=== PATIENT | male | born 1960 | race African-American/Black ===

== ENCOUNTER 2022-08-03 13:15 | Inpatient (IN) | payer OTHER ==
[~2022-08-03] VITALS: Ht 154.9 cm; Wt 50.0 kg
[2022-08-03 14:11] LABS: GLUCOMETER DEV NAME(LOC) ERT.5; GLUCOSE,POINT OF CARE 65 MG/DL (70-110)
[2022-08-03] MEDS ORDERED: DEXTROSE 50%-WATER 25 GM/50 ML SYRINGE IVP ONE ×2 (14:15→16:15)
[2022-08-03 14:20] LABS: BASOPHILS % (AUTO) 0.2 % (0.0-2.0); EOSINOPHILS % (AUTO) 2.3 % (1.0-6.0); HEMATOCRIT 42.6 % (41-53); HEMOGLOBIN 13.5 g/dL (13.5-17.5); LYMPHOCYTES # (AUTO) 1.1 K/uL (1.0-4.8); LYMPHOCYTES % (AUTO) 15.5 % (22.0-44.0); MEAN CORPUSCULAR HEMOGLOBIN 27.9 pg (26.0-34.0); MEAN CORPUSCULAR HGB CONC 31.8 G/dL (31.0-37.0); MEAN CORPUSCULAR VOLUME 88 fL (80-100); MONOCYTES # (AUTO) 0.7 K/uL (0.1-1.0); MONOCYTES % (AUTO) 9.2 % (2.0-9.0); NEUTROPHILS # (AUTO) 5.1 K/uL (1.8-7.7); NEUTROPHILS % (AUTO) 72.8 % (40.0-70.0); PLATELET COUNT (AUTO) 187 K/uL (150-450); RED BLOOD CELL COUNT(AUTO) 4.85 MIL/uL (4.50-5.90); RED CELL DISTRIBUTION WIDTH 16.7 % (11.5-14.5)
[2022-08-03 14:37] LABS: APPEARANCE,URINE CLEAR (CLEAR); BILIRUBIN,URINE NEGATIVE (NEGATIVE); GLUCOSE, URINE (UA) >=1000 mg/dL (NEGATIVE); KETONES,URINE NEGATIVE (NEGATIVE); LEUKOCYTE ESTERASE ,URINE NEGATIVE (NEGATIVE); NITRATE,URINE NEGATIVE (NEGATIVE); OCCULT BLOOD,URINE NEGATIVE (NEGATIVE); PH,URINE 5.5 (5.0-8.0); PROTEIN,URINE NEGATIVE (NEGATIVE); SPECIFIC GRAVITIY, URINE 1.016 (1.003-1.030); UROBILINOGEN,URINE <=1.0 mg/dL (<=1.0)
[2022-08-03 14:38] LABS: B-TYPE NATRIURETIC PEPTIDE 24 pg/mL (0-100)
[2022-08-03 14:40] LABS: BACTERIA,URINE None Seen /HPF (None Seen); RBC,URINE None Seen /HPF (0-2); WBC,URINE None Seen /HPF (0-5)
[2022-08-03 14:46] LABS: GLUCOMETER DEV NAME(LOC) ERT.5; GLUCOSE,POINT OF CARE 76 MG/DL (70-110)
[2022-08-03 14:54] LABS: ANION GAP 4 mmol/L (8-16); CALCIUM, TOTAL 9.4 mg/dL (8.8-10.5); CARBON DIOXIDE 33 mmol/L (22-29); CHLORIDE 105 mmol/L (98-107); CREATININE 0.91 mg/dL (0.60-1.30); GLUCOSE,RANDOM 75 mg/dL (70-110); POTASSIUM 3.5 mmol/L (3.5-5.1); SODIUM SERUM 142 mmol/L (136-145); UREA NITROGEN, BLOOD 17 mg/dL (7-18)
[2022-08-03 14:56] LABS: GLOMERULAR FILTR. RATE CALC > 60 mL/min (>60)
[2022-08-03 15:28] LABS: ALANINE AMINOTRANSFERASE 26 U/L (12-78); ALBUMIN 3.7 g/dL (3.4-5.0); ALKALINE PHOSPHATASE 73 U/L (46-116); ASPARTATE AMINOTRANSFERASE 24 U/L (15-37); BILIRUBIN,TOTAL 0.4 mg/dL (0.1-1.0); CREATINE KINASE, TOTAL ONLY 489 U/L (39-308)
[2022-08-03 15:31] LABS: GLUCOSE,POINT OF CARE 69 MG/DL (70-110)
[2022-08-03] MEDS ORDERED: DEXTROSE 5%-0.9% SODIUM CHL 1,000 ML IV ONE (16:15)
[2022-08-03 16:16] LABS: GLUCOMETER DEV NAME(LOC) ERT.5; GLUCOSE,POINT OF CARE 48 MG/DL (70-110)
[2022-08-03 16:56] LABS: GLUCOMETER DEV NAME(LOC) ERT.5; GLUCOSE,POINT OF CARE 153 MG/DL (70-110)
[2022-08-03 17:11] LABS: COVID AG,FIA SOURCE NASAL SWAB
[2022-08-03 17:26] LABS: GLUCOMETER DEV NAME(LOC) ERT.5; GLUCOSE,POINT OF CARE 129 MG/DL (70-110)
[2022-08-03 18:02] LABS: GLUCOMETER DEV NAME(LOC) ERT.5; GLUCOSE,POINT OF CARE 109 MG/DL (70-110)
[2022-08-03 20:21] LABS: GLUCOMETER DEV NAME(LOC) ERT.5; GLUCOSE,POINT OF CARE 77 MG/DL (70-110)
[2022-08-03] MEDS ORDERED: ONDANSETRON HCL 4 MG/2 ML VIAL IVP PRN ×2 (21:15→22:15)
[2022-08-03] MEDS ORDERED: 0.9% SODIUM CHLORIDE 10 ML SYRINGE IVP PRN ×2 (21:15→22:15)
[2022-08-03] MEDS ORDERED: ACETAMINOPHEN 325 MG TABLET PO PRN ×2 (21:15→22:15)
[2022-08-03] MEDS ORDERED: OxyCODONE HCL/ACETAMINOPHEN 5-325 MG TABLET PO PRN ×2 (22:15)
[2022-08-03] MEDS ORDERED: MAGNESIUM HYDROXIDE SUSPENSION 30 ML UDCUP PO PRN (22:15)
[2022-08-03] MEDS: DEXTROSE 5%-0.9% SODIUM CHL 1,000 ML IV SCH (22:30)
[2022-08-04 00:41] VITALS: BP 98/55
[2022-08-04 04:32] VITALS: BP 114/55
[2022-08-04] MEDS: DEXTROSE 5%-0.9% SODIUM CHL 1,000 ML IV SCH (04:38)
[2022-08-04 06:26] LABS: GLUCOMETER DEV NAME(LOC) 5S.1B; GLUCOSE,POINT OF CARE 72 MG/DL (70-110)
[2022-08-04 06:26] LABS: GLUCOMETER DEV NAME(LOC) 5S.2B; GLUCOSE,POINT OF CARE 111 MG/DL (70-110)
[2022-08-04 06:31] LABS: BASOPHILS % (AUTO) 0.3 % (0.0-2.0); EOSINOPHILS % (AUTO) 2.9 % (1.0-6.0); HEMATOCRIT 38.8 % (41-53); HEMOGLOBIN 12.6 g/dL (13.5-17.5); LYMPHOCYTES # (AUTO) 1.4 K/uL (1.0-4.8); LYMPHOCYTES % (AUTO) 26.4 % (22.0-44.0); MEAN CORPUSCULAR HEMOGLOBIN 28.6 pg (26.0-34.0); MEAN CORPUSCULAR HGB CONC 32.4 G/dL (31.0-37.0); MEAN CORPUSCULAR VOLUME 88 fL (80-100); MONOCYTES # (AUTO) 0.6 K/uL (0.1-1.0); MONOCYTES % (AUTO) 10.5 % (2.0-9.0); NEUTROPHILS # (AUTO) 3.2 K/uL (1.8-7.7); NEUTROPHILS % (AUTO) 59.9 % (40.0-70.0); PLATELET COUNT (AUTO) 177 K/uL (150-450); RED BLOOD CELL COUNT(AUTO) 4.41 MIL/uL (4.50-5.90); RED CELL DISTRIBUTION WIDTH 16.4 % (11.5-14.5)
[2022-08-04 07:03] LABS: ALANINE AMINOTRANSFERASE 13 U/L (12-78); ALBUMIN 2.8 g/dL (3.4-5.0); ALKALINE PHOSPHATASE 58 U/L (46-116); ANION GAP 4 mmol/L (8-16); ASPARTATE AMINOTRANSFERASE 21 U/L (15-37); BILIRUBIN,TOTAL 0.3 mg/dL (0.1-1.0); CALCIUM, TOTAL 8.4 mg/dL (8.8-10.5); CARBON DIOXIDE 30 mmol/L (22-29); CHLORIDE 110 mmol/L (98-107); CREATININE 0.82 mg/dL (0.60-1.30); GLUCOSE,RANDOM 79 mg/dL (70-110); POTASSIUM 3.5 mmol/L (3.5-5.1); SODIUM SERUM 144 mmol/L (136-145); TOTAL PROTEIN, SERUM 5.5 g/dL (6.4-8.2); UREA NITROGEN, BLOOD 13 mg/dL (7-18)
[2022-08-04 07:08] LABS: GLOMERULAR FILTR. RATE CALC > 60 mL/min (>60)
[2022-08-04 07:47] VITALS: BP 115/71
[2022-08-04] MEDS ORDERED: INSULIN REGULAR, HUMAN 100 UNITS/ML SQ PRN ×2 (08:30)
[2022-08-04] MEDS: DOCUSATE SODIUM 100 MG CAPSULE PO SCH ×2 (10:29→21:44)
[2022-08-04] MEDS: PANTOPRAZOLE SODIUM 40 MG/VIAL IVP SCH (10:30)
[2022-08-04 11:11] VITALS: BP 115/69
[2022-08-04 12:21] LABS: GLUCOMETER DEV NAME(LOC) 5S.1B; GLUCOSE,POINT OF CARE 64 MG/DL (70-110)
[2022-08-04 20:06] LABS: GLUCOMETER DEV NAME(LOC) 5S.1B; GLUCOSE,POINT OF CARE 95 MG/DL (70-110)
[2022-08-04 20:09] VITALS: BP 122/74
[2022-08-05 00:29] VITALS: BP 129/78
[2022-08-05 05:06] VITALS: BP 119/71
[2022-08-05 06:51] LABS: GLUCOMETER DEV NAME(LOC) 5S.2B; GLUCOSE,POINT OF CARE 54 MG/DL (70-110)
[2022-08-05] MEDS: DOCUSATE SODIUM 100 MG CAPSULE PO SCH ×2 (08:07→20:35)
[2022-08-05] MEDS: PANTOPRAZOLE SODIUM 40 MG/VIAL IVP SCH (08:07)
[2022-08-05 11:08] VITALS: BP 123/71
[2022-08-05 11:51] LABS: GLUCOMETER DEV NAME(LOC) 5S.2B; GLUCOSE,POINT OF CARE 66 MG/DL (70-110)
[2022-08-05 11:51] LABS: GLUCOMETER DEV NAME(LOC) 5S.2B; GLUCOSE,POINT OF CARE 61 MG/DL (70-110)
[2022-08-05] MEDS: DEXTROSE 50%-WATER 25 GM/50 ML SYRINGE IVP PRN (12:00)
[2022-08-05 12:52] LABS: BASOPHILS % (AUTO) 0.3 % (0.0-2.0); EOSINOPHILS % (AUTO) 1.4 % (1.0-6.0); HEMATOCRIT 39.9 % (41-53); HEMOGLOBIN 12.7 g/dL (13.5-17.5); LYMPHOCYTES # (AUTO) 0.9 K/uL (1.0-4.8); LYMPHOCYTES % (AUTO) 15.7 % (22.0-44.0); MEAN CORPUSCULAR HEMOGLOBIN 28.2 pg (26.0-34.0); MEAN CORPUSCULAR HGB CONC 31.9 G/dL (31.0-37.0); MEAN CORPUSCULAR VOLUME 88 fL (80-100); MONOCYTES # (AUTO) 0.4 K/uL (0.1-1.0); MONOCYTES % (AUTO) 7.1 % (2.0-9.0); NEUTROPHILS # (AUTO) 4.2 K/uL (1.8-7.7); NEUTROPHILS % (AUTO) 75.5 % (40.0-70.0); PLATELET COUNT (AUTO) 175 K/uL (150-450); RED BLOOD CELL COUNT(AUTO) 4.52 MIL/uL (4.50-5.90); RED CELL DISTRIBUTION WIDTH 16.6 % (11.5-14.5)
[2022-08-05 13:08] LABS: ANION GAP 4 mmol/L (8-16); CALCIUM, TOTAL 8.7 mg/dL (8.8-10.5); CARBON DIOXIDE 31 mmol/L (22-29); CHLORIDE 106 mmol/L (98-107); CREATININE 0.86 mg/dL (0.60-1.30); GLUCOSE,RANDOM 178 mg/dL (70-110); POTASSIUM 3.8 mmol/L (3.5-5.1); SODIUM SERUM 141 mmol/L (136-145); UREA NITROGEN, BLOOD 9 mg/dL (7-18)
[2022-08-05 13:09] LABS: GLOMERULAR FILTR. RATE CALC > 60 mL/min (>60)
[2022-08-05 15:26] LABS: GLUCOMETER DEV NAME(LOC) 5S.2B; GLUCOSE,POINT OF CARE 63 MG/DL (70-110)
[2022-08-05 16:35] VITALS: BP 120/72
[2022-08-05 19:51] VITALS: BP 125/78
[2022-08-05 22:51] LABS: GLUCOMETER DEV NAME(LOC) 6N.2B; GLUCOSE,POINT OF CARE 89 MG/DL (70-110)
[2022-08-06 05:23] VITALS: BP 126/78
[2022-08-06 06:26] LABS: GLUCOMETER DEV NAME(LOC) 5S.2B; GLUCOSE,POINT OF CARE 76 MG/DL (70-110)
[2022-08-06 08:31] LABS: GLUCOMETER DEV NAME(LOC) 6N.1; GLUCOSE,POINT OF CARE 58 MG/DL (70-110)
[2022-08-06 08:31] LABS: GLUCOMETER DEV NAME(LOC) 6N.1; GLUCOSE,POINT OF CARE 111 MG/DL (70-110)
[2022-08-06] MEDS: DOCUSATE SODIUM 100 MG CAPSULE PO SCH ×2 (08:31→20:58)
[2022-08-06] MEDS: PANTOPRAZOLE SODIUM 40 MG/VIAL IVP SCH (08:31)
[2022-08-06] MEDS: DEXTROSE 50%-WATER 25 GM/50 ML SYRINGE IVP PRN (12:12)
[2022-08-06] MEDS ORDERED: DEXTROSE 5%-0.45% SODIUM CHL 500 ML IV ONE ×2 (13:15→14:46)
[2022-08-06 14:11] LABS: GLUCOMETER DEV NAME(LOC) 6N.1; GLUCOSE,POINT OF CARE 45 MG/DL (70-110)
[2022-08-06 14:11] LABS: GLUCOMETER DEV NAME(LOC) 6N.1; GLUCOSE,POINT OF CARE 110 MG/DL (70-110)
[2022-08-06 15:46] VITALS: BP 126/80
[2022-08-06 20:25] VITALS: BP 136/68
[2022-08-06 23:36] LABS: GLUCOMETER DEV NAME(LOC) 6N.2B; GLUCOSE,POINT OF CARE 64 MG/DL (70-110)
[2022-08-06 23:36] LABS: GLUCOMETER DEV NAME(LOC) 6N.2B; GLUCOSE,POINT OF CARE 121 MG/DL (70-110)
[2022-08-06 23:36] LABS: GLUCOMETER DEV NAME(LOC) 6N.1; GLUCOSE,POINT OF CARE 59 MG/DL (70-110)
[2022-08-07 04:52] VITALS: BP 146/92
[2022-08-07 06:41] LABS: GLUCOMETER DEV NAME(LOC) 6N.2B; GLUCOSE,POINT OF CARE 103 MG/DL (70-110)
[2022-08-07 06:41] LABS: GLUCOMETER DEV NAME(LOC) 6N.2B; GLUCOSE,POINT OF CARE 60 MG/DL (70-110)
[2022-08-07] MEDS: PANTOPRAZOLE SODIUM 40 MG/VIAL IVP SCH (09:01)
[2022-08-07] MEDS: DOCUSATE SODIUM 100 MG CAPSULE PO SCH ×2 (09:01→21:21)
[2022-08-07] MEDS ORDERED: DEXTROSE 5%-0.45% SODIUM CHL 500 ML IV ONE (10:15)
[2022-08-07] MEDS ORDERED: DEXTROSE 5%-0.45% SODIUM CHL 1,000 ML IV STA (11:09)
[2022-08-07 19:50] VITALS: BP 118/66
[2022-08-07 19:51] LABS: GLUCOMETER DEV NAME(LOC) 6N.2B; GLUCOSE,POINT OF CARE 75 MG/DL (70-110)
[2022-08-07 19:51] LABS: GLUCOMETER DEV NAME(LOC) 6N.2B; GLUCOSE,POINT OF CARE 63 MG/DL (70-110)
[2022-08-07 22:16] LABS: GLUCOMETER DEV NAME(LOC) 6N.2B; GLUCOSE,POINT OF CARE 96 MG/DL (70-110)
[2022-08-08 05:25] VITALS: BP 135/80
[2022-08-08 07:58] VITALS: BP 120/77
[2022-08-08 08:56] LABS: GLUCOMETER DEV NAME(LOC) 6N.2B; GLUCOSE,POINT OF CARE 71 MG/DL (70-110)
[2022-08-08] MEDS: PANTOPRAZOLE SODIUM 40 MG/VIAL IVP SCH (09:42)
[2022-08-08] MEDS: DOCUSATE SODIUM 100 MG CAPSULE PO SCH ×2 (09:43→20:00)
[2022-08-08 11:41] LABS: GLUCOMETER DEV NAME(LOC) 6N.2B; GLUCOSE,POINT OF CARE 51 MG/DL (70-110)
[2022-08-08] MEDS: DEXTROSE 50%-WATER 25 GM/50 ML SYRINGE IVP PRN ×2 (13:11→18:40)
[2022-08-08 15:27] VITALS: BP 109/66
[2022-08-08 20:05] VITALS: BP 116/67
[2022-08-08 21:26] LABS: GLUCOMETER DEV NAME(LOC) 6N.2B; GLUCOSE,POINT OF CARE 109 MG/DL (70-110)
[2022-08-08 21:26] LABS: GLUCOMETER DEV NAME(LOC) 6N.2B; GLUCOSE,POINT OF CARE 36 MG/DL (70-110)
[2022-08-08 21:26] LABS: GLUCOMETER DEV NAME(LOC) 6N.2B; GLUCOSE,POINT OF CARE 63 MG/DL (70-110)
[2022-08-08 21:27] LABS: GLUCOMETER DEV NAME(LOC) 6N.2B; GLUCOSE,POINT OF CARE 80 MG/DL (70-110)
[2022-08-08 21:27] LABS: GLUCOMETER DEV NAME(LOC) 6N.2B; GLUCOSE,POINT OF CARE 53 MG/DL (70-110)
[2022-08-09 00:52] LABS: GLUCOMETER DEV NAME(LOC) 6N.2B; GLUCOSE,POINT OF CARE 148 MG/DL (70-110)
[2022-08-09 05:38] VITALS: BP 107/58
[2022-08-09 08:05] LABS: GLUCOMETER DEV NAME(LOC) 6N.2B; GLUCOSE,POINT OF CARE 99 MG/DL (70-110)
[2022-08-09] MEDS: PANTOPRAZOLE SODIUM 40 MG/VIAL IVP SCH (08:06)
[2022-08-09] MEDS: DOCUSATE SODIUM 100 MG CAPSULE PO SCH ×2 (08:06→20:43)
[2022-08-09] MEDS: DEXTROSE 50%-WATER 25 GM/50 ML SYRINGE IVP PRN ×2 (11:31→22:07)
[2022-08-09 14:41] LABS: GLUCOMETER DEV NAME(LOC) 6N.2B; GLUCOSE,POINT OF CARE 112 MG/DL (70-110)
[2022-08-09 14:41] LABS: GLUCOMETER DEV NAME(LOC) 6N.2B; GLUCOSE,POINT OF CARE 40 MG/DL (70-110)
[2022-08-09] MEDS ORDERED: GADOTERATE MEGLUMINE 10 MMOL/20 ML VIAL IVP ONE (15:48)
[2022-08-09 15:53] VITALS: BP 125/63
[2022-08-09] MEDS: DEXTROSE 40% LEMON 37.5 GM/TUBE GEL [15 GM GLUCOSE] PO PRN (15:56)
[2022-08-09 16:01] LABS: GLUCOMETER DEV NAME(LOC) 6N.2B; GLUCOSE,POINT OF CARE 57 MG/DL (70-110)
[2022-08-09 17:36] LABS: GLUCOMETER DEV NAME(LOC) 6N.2B; GLUCOSE,POINT OF CARE 77 MG/DL (70-110)
[2022-08-09 17:36] LABS: GLUCOMETER DEV NAME(LOC) 6N.2B; GLUCOSE,POINT OF CARE 66 MG/DL (70-110)
[2022-08-09 20:52] VITALS: BP 130/81
[2022-08-09 23:51] LABS: GLUCOMETER DEV NAME(LOC) 6N.2B; GLUCOSE,POINT OF CARE 57 MG/DL (70-110)
[2022-08-09 23:51] LABS: GLUCOMETER DEV NAME(LOC) 6N.2B; GLUCOSE,POINT OF CARE 199 MG/DL (70-110)
[2022-08-10 00:45] LABS: GLUCOMETER DEV NAME(LOC) 6N.2B; GLUCOSE,POINT OF CARE 141 MG/DL (70-110)
[2022-08-10 03:36] LABS: GLUCOMETER DEV NAME(LOC) 6N.2B; GLUCOSE,POINT OF CARE 74 MG/DL (70-110)
[2022-08-10] MEDS: DEXTROSE 40% LEMON 37.5 GM/TUBE GEL [15 GM GLUCOSE] PO PRN (04:11)
[2022-08-10 04:13] VITALS: BP 120/77
[2022-08-10 04:21] LABS: GLUCOMETER DEV NAME(LOC) 6N.2B; GLUCOSE,POINT OF CARE 98 MG/DL (70-110)
[2022-08-10 04:21] LABS: GLUCOMETER DEV NAME(LOC) 6N.2B; GLUCOSE,POINT OF CARE 93 MG/DL (70-110)
[2022-08-10 07:06] LABS: GLUCOMETER DEV NAME(LOC) 6N.1; GLUCOSE,POINT OF CARE 117 MG/DL (70-110)
[2022-08-10 07:06] LABS: GLUCOMETER DEV NAME(LOC) 6N.1; GLUCOSE,POINT OF CARE 111 MG/DL (70-110)
[2022-08-10 07:48] VITALS: BP 112/67
[2022-08-10] MEDS: DOCUSATE SODIUM 100 MG CAPSULE PO SCH ×2 (09:00→09:03)
[2022-08-10] MEDS: PANTOPRAZOLE SODIUM 40 MG/VIAL IVP SCH (09:03)
[2022-08-10] MEDS: DEXTROSE 50%-WATER 25 GM/50 ML SYRINGE IVP PRN (10:16)
[2022-08-10 15:55] VITALS: BP 113/81
[2022-08-10 17:06] LABS: GLUCOMETER DEV NAME(LOC) 6N.1; GLUCOSE,POINT OF CARE 98 MG/DL (70-110)
[2022-08-10 17:06] LABS: GLUCOMETER DEV NAME(LOC) 6N.1; GLUCOSE,POINT OF CARE 89 MG/DL (70-110)
[2022-08-10 17:06] LABS: GLUCOMETER DEV NAME(LOC) 6N.1; GLUCOSE,POINT OF CARE 36 MG/DL (70-110)
[2022-08-10 17:06] LABS: GLUCOMETER DEV NAME(LOC) 6N.1; GLUCOSE,POINT OF CARE 60 MG/DL (70-110)
[2022-08-10 17:21] LABS: GLUCOMETER DEV NAME(LOC) 6N.1; GLUCOSE,POINT OF CARE 78 MG/DL (70-110)
[2022-08-10] MEDS ORDERED: DEXTROSE 5%-0.45% SODIUM CHL 1,000 ML IV SCH (18:30)
[2022-08-10 20:03] VITALS: BP 127/66
== END 2022-08-10 20:30 | disposition short-term general hospital (02) | DRG 70 ==
LOC: EMS 13:20 → 5S 18:47 → 6S 08-05 18:53 → 6N 08-09 10:31
PROVIDERS: ADMIT Internal Medicine; ATTEND Internal Medicine
DX: G93.41 Metabolic encephalopathy (principal); E43 Unspecified severe protein-calorie malnutrition; E16.2 Hypoglycemia, unspecified; I10 Essential (primary) hypertension; F03.90 Unspecified dementia, unspecified severity, without behavioral disturbance, psychotic disturbance, mood disturbance, and anxiety; Z20.822 Contact with and (suspected) exposure to COVID-19; Z68.20 Body mass index [BMI] 20.0-20.9, adult
CPT/HCPCS: 70450; 71045; 74176; 80048; 80053; 81001; 82010; 82550; 82962; 83036; 83520; 83525; 83880; 84484; 84681; 85025; 93005; 99291; C9113; J7042; 36415-L1; 36415-TC

== ENCOUNTER 2023-12-28 20:55 | Inpatient (IN) | payer OTHER ==
[~2023-12-28] VITALS: Ht 182.9 cm; Wt 95.1 kg
[2023-12-28] MEDS ORDERED: IOHEXOL 350 MG/ML 100 ML VIAL ONE (21:24)
[2023-12-28] MEDS ORDERED: SODIUM CHLORIDE 0.9% 100 ML ONE (21:25)
[2023-12-28 21:46] LABS: BASOPHILS % (AUTO) 0.6 % (0.0-2.0); EOSINOPHILS % (AUTO) 0 % (1.0-6.0); HEMATOCRIT 46.9 % (41-53); HEMOGLOBIN 15.3 g/dL (13.5-17.5); LYMPHOCYTES # (AUTO) 0.8 K/uL (1.0-4.8); LYMPHOCYTES % (AUTO) 7.1 % (22.0-44.0); MEAN CORPUSCULAR HEMOGLOBIN 28.6 pg (26.0-34.0); MEAN CORPUSCULAR HGB CONC 32.6 G/dL (31.0-37.0); MEAN CORPUSCULAR VOLUME 88 fL (80-100); MONOCYTES # (AUTO) 0.8 K/uL (0.1-1.0); MONOCYTES % (AUTO) 7.1 % (2.0-9.0); NEUTROPHILS # (AUTO) 9.5 K/uL (1.8-7.7); PLATELET COUNT (AUTO) 183 K/uL (150-450); RED BLOOD CELL COUNT(AUTO) 5.34 MIL/uL (4.50-5.90); RED CELL DISTRIBUTION WIDTH 15.3 % (11.5-14.5); WHITE BLOOD COUNT (AUTO) 11.2 K/uL (4.5-11.0)
[2023-12-28 21:47] LABS: NEUTROPHILS % (AUTO) 85.2 % (40.0-70.0)
[2023-12-28 21:55] LABS: INR 1.1 (0.9-1.1); PROTHROMBIN TIME 11.1 SEC (9.4-11.6)
[2023-12-28 22:04] LABS: TROPONIN I-HIGH SENSITIVITY 12 ng/L (<76)
[2023-12-28 22:06] LABS: ANION GAP 8 mmol/L (8-16); CALCIUM, TOTAL 10.4 mg/dL (8.8-10.5); CARBON DIOXIDE 29 mmol/L (22-29); CHLORIDE 105 mmol/L (98-107); CREATININE 1.16 mg/dL (0.60-1.30); GLOMERULAR FILTR. RATE CALC > 60 mL/min (>60); GLUCOSE,RANDOM 126 mg/dL (70-110); POTASSIUM 4.8 mmol/L (3.5-5.1); SODIUM SERUM 142 mmol/L (136-145); UREA NITROGEN, BLOOD 22 mg/dL (7-18)
[2023-12-28 22:11] LABS: GLUCOMETER DEV NAME(LOC) ERT.5; GLUCOSE,POINT OF CARE 118 MG/DL (70-110)
[2023-12-28 22:12] LABS: ALANINE AMINOTRANSFERASE 28 U/L (12-78); ALBUMIN 4.2 g/dL (3.4-5.0); ALKALINE PHOSPHATASE 105 U/L (46-116); ASPARTATE AMINOTRANSFERASE 21 U/L (15-37); BILIRUBIN,TOTAL 0.8 mg/dL (0.1-1.0); TOTAL PROTEIN, SERUM 8.6 g/dL (6.4-8.2)
[2023-12-28 22:14] LABS: LACTIC ACID 3.5 mmol/L (0.4-2.0)
[2023-12-28] MEDS: PIPERACILLIN/TAZO 3.375 GM/D5W 50 ML IV ONE (22:34)
[2023-12-28] MEDS: SODIUM CHLORIDE 0.9% 1,600 ML IV ONE (22:34)
[2023-12-28 23:08] LABS: APPEARANCE,URINE CLEAR (CLEAR); BILIRUBIN,URINE NEGATIVE (NEGATIVE); COLOR,URINE YELLOW (YELLOW); GLUCOSE, URINE (UA) NEGATIVE (NEGATIVE); LEUKOCYTE ESTERASE ,URINE NEGATIVE (NEGATIVE); NITRATE,URINE NEGATIVE (NEGATIVE); OCCULT BLOOD,URINE MODERATE (NEGATIVE); PROTEIN,URINE 30-70 mg/dL (NEGATIVE); UROBILINOGEN,URINE <=1.0 mg/dL (<=1.0)
[2023-12-28 23:14] LABS: ALCOHOL, URINE DRUG SCREEN NEGATIVE (NEGATIVE); AMPHET/METH SCREEN,URINE NEGATIVE (NEGATIVE); BARBITURATE SCREEN, URINE NEGATIVE (NEGATIVE); BENZODIAZEPINES SCREEN,URINE NEGATIVE (NEGATIVE); CANNABINOID SCREEN,URINE POSITIVE (NEGATIVE); COCAINE SCREEN,URINE NEGATIVE (NEGATIVE); METHADONE SCREEN, URINE NEGATIVE (NEGATIVE); OPIATE SCREEN,URINE NEGATIVE (NEGATIVE); PHENCYCLIDINE SCREEN,URINE NEGATIVE (NEGATIVE)
[2023-12-28 23:35] LABS: BACTERIA,URINE None Seen /HPF (None Seen); HYALINE CASTS, URINE 0-2 /LPF (None Seen); RBC,URINE 51-100 /HPF (0-2); SQUAMOUS EPITHELIAL CELL,UR Few /LPF (None Seen); URINALYSIS COMMENT Moderate Sperm seen.
[2023-12-29 01:47] LABS: TROPONIN I-HIGH SENSITIVITY 14 ng/L (<76)
[2023-12-29 03:46] VITALS: BP 129/64; PULSE 63; RESP 20; TEMP 97.9
[2023-12-29] MEDS ORDERED: HYDROCODONE/ACETAMINOPHEN 5-325 MG TABLET PO PRN (06:00)
[2023-12-29] MEDS ORDERED: ACETAMINOPHEN 325 MG TABLET PO PRN (06:00)
[2023-12-29] MEDS ORDERED: ONDANSETRON HCL 4 MG/2 ML VIAL IVP PRN (06:00)
[2023-12-29] MEDS ORDERED: ZOLPIDEM TARTRATE 5 MG TABLET PO PRN (06:00)
[2023-12-29] MEDS ORDERED: MAGNESIUM HYDROXIDE SUSPENSION 30 ML UDCUP PO PRN (06:00)
[2023-12-29] MEDS ORDERED: MORPHINE SULFATE 2 MG/ML SYRINGE IVP PRN (06:00)
[2023-12-29] MEDS: *CLINICAL-LEVOFLOXACIN IVPB DOSING CLINICAL ONE (06:02)
[2023-12-29] MEDS: LEVOFLOXACIN 750 MG/D5% WATER 150 ML IV SCH (06:41)
[2023-12-29 08:02] VITALS: BP 147/86; PULSE 65; RESP 19; TEMP 97.7
[2023-12-29] MEDS: PANTOPRAZOLE SODIUM 40 MG DR TABLET PO SCH (09:48)
[2023-12-29] MEDS: HEPARIN SODIUM,PORCINE 5,000 UNITS/ML VIAL SQ SCH (09:48)
[2023-12-29] MEDS: DOCUSATE SODIUM 100 MG CAPSULE PO SCH (09:48)
[2023-12-29 11:41] VITALS: BP 113/66; PULSE 54; RESP 19; TEMP 98.1
[2023-12-29] MEDS: ATORVASTATIN CALCIUM 20 MG TABLET PO SCH (13:33)
[2023-12-29] MEDS: ASPIRIN 81 MG CHEWABLE TABLET PO SCH (13:34)
[2023-12-29 16:18] VITALS: BP 129/68; PULSE 60; RESP 19; TEMP 98.5
[2023-12-29 20:05] VITALS: BP 127/70; PULSE 64; RESP 18; TEMP 99.5
[2023-12-29] MEDS: MEMANTINE HCL 10 MG TABLET PO SCH (23:13)
[2023-12-30 05:07] VITALS: BP 136/76; PULSE 58; RESP 18; TEMP 97.5
[2023-12-30 07:22] LABS: BASOPHILS % (AUTO) 0.8 % (0.0-2.0); HEMATOCRIT 39.9 % (41-53); HEMOGLOBIN 12.9 g/dL (13.5-17.5); LYMPHOCYTES # (AUTO) 1.4 K/uL (1.0-4.8); LYMPHOCYTES % (AUTO) 21.9 % (22.0-44.0); MEAN CORPUSCULAR HEMOGLOBIN 28.4 pg (26.0-34.0); MEAN CORPUSCULAR HGB CONC 32.4 G/dL (31.0-37.0); MEAN CORPUSCULAR VOLUME 88 fL (80-100); MONOCYTES # (AUTO) 0.7 K/uL (0.1-1.0); NEUTROPHILS % (AUTO) 64.3 % (40.0-70.0); PLATELET COUNT (AUTO) 136 K/uL (150-450); RED BLOOD CELL COUNT(AUTO) 4.55 MIL/uL (4.50-5.90); RED CELL DISTRIBUTION WIDTH 15.2 % (11.5-14.5); WHITE BLOOD COUNT (AUTO) 6.3 K/uL (4.5-11.0)
[2023-12-30 07:34] VITALS: BP 144/75; PULSE 60; RESP 18; TEMP 98.1
[2023-12-30 07:34] LABS: ANION GAP 5 mmol/L (8-16); CALCIUM, TOTAL 9.4 mg/dL (8.8-10.5); CARBON DIOXIDE 29 mmol/L (22-29); CHLORIDE 109 mmol/L (98-107); CREATININE 0.88 mg/dL (0.60-1.30); GLOMERULAR FILTR. RATE CALC > 60 mL/min (>60); GLUCOSE,RANDOM 86 mg/dL (70-110); POTASSIUM 4.1 mmol/L (3.5-5.1); SODIUM SERUM 143 mmol/L (136-145); UREA NITROGEN, BLOOD 15 mg/dL (7-18)
[2023-12-30] MEDS ORDERED: SODIUM CHLORIDE 0.9% 500 ML IV ONE (08:59)
[2023-12-30] MEDS ORDERED: GADOTERATE MEGLUMINE 10 MMOL/20 ML VIAL IVP ONE (13:48)
[2023-12-30] MEDS ORDERED: LORazepam 2 MG/ML VIAL ONE (14:21)
[2023-12-30] MEDS: LORazepam 2 MG/ML VIAL IVP ONE (15:22)
[2023-12-30 15:47] VITALS: BP 122/76; PULSE 74; RESP 18; TEMP 97.5
[2023-12-30 19:33] VITALS: BP 134/86; PULSE 72; RESP 18; TEMP 97.3
[2023-12-31 05:30] VITALS: BP 136/82; PULSE 54; RESP 18; TEMP 97.8
[2023-12-31 08:00] LABS: BASOPHILS % (AUTO) 0.5 % (0.0-2.0); HEMATOCRIT 39.2 % (41-53); HEMOGLOBIN 12.9 g/dL (13.5-17.5); LYMPHOCYTES # (AUTO) 1.3 K/uL (1.0-4.8); LYMPHOCYTES % (AUTO) 21.3 % (22.0-44.0); MEAN CORPUSCULAR HEMOGLOBIN 28.8 pg (26.0-34.0); MEAN CORPUSCULAR HGB CONC 32.9 G/dL (31.0-37.0); MEAN CORPUSCULAR VOLUME 87 fL (80-100); MONOCYTES # (AUTO) 0.7 K/uL (0.1-1.0); MONOCYTES % (AUTO) 10.9 % (2.0-9.0); NEUTROPHILS # (AUTO) 3.9 K/uL (1.8-7.7); NEUTROPHILS % (AUTO) 64.3 % (40.0-70.0); PLATELET COUNT (AUTO) 165 K/uL (150-450); RED BLOOD CELL COUNT(AUTO) 4.48 MIL/uL (4.50-5.90); RED CELL DISTRIBUTION WIDTH 14.8 % (11.5-14.5); WHITE BLOOD COUNT (AUTO) 6.1 K/uL (4.5-11.0)
[2023-12-31 08:06] VITALS: BP 142/85; PULSE 65; RESP 18; TEMP 97.6
[2023-12-31 08:13] LABS: ANION GAP 6 mmol/L (8-16); CALCIUM, TOTAL 9.1 mg/dL (8.8-10.5); CARBON DIOXIDE 29 mmol/L (22-29); CHLORIDE 108 mmol/L (98-107); CREATININE 0.89 mg/dL (0.60-1.30); GLOMERULAR FILTR. RATE CALC > 60 mL/min (>60); GLUCOSE,RANDOM 85 mg/dL (70-110); POTASSIUM 3.6 mmol/L (3.5-5.1); SODIUM SERUM 143 mmol/L (136-145); UREA NITROGEN, BLOOD 14 mg/dL (7-18)
[2023-12-31] MEDS: BISACODYL 10 MG RECTAL RECTAL SUPPOSITORY PR PRN (08:23)
[2023-12-31] MEDS: POLYETHYLENE GLYCOL 3350 17 GM PACKET PO SCH (10:03)
[2023-12-31] MEDS: MINERAL OIL 133 ML ENEMA PR ONE (13:14)
[2023-12-31 15:13] VITALS: BP 134/72; PULSE 63; RESP 18; TEMP 98.2
[2023-12-31 19:18] VITALS: BP 130/72; PULSE 74; RESP 18; TEMP 98.4
[2024-01-01 05:24] VITALS: BP 145/66; PULSE 66; RESP 18; TEMP 98.3
[2024-01-01 06:49] LABS: BASOPHILS % (AUTO) 0.4 % (0.0-2.0); EOSINOPHILS % (AUTO) 2.5 % (1.0-6.0); HEMATOCRIT 40.6 % (41-53); HEMOGLOBIN 13.2 g/dL (13.5-17.5); LYMPHOCYTES # (AUTO) 1.5 K/uL (1.0-4.8); LYMPHOCYTES % (AUTO) 22.3 % (22.0-44.0); MEAN CORPUSCULAR HEMOGLOBIN 28.5 pg (26.0-34.0); MEAN CORPUSCULAR HGB CONC 32.4 G/dL (31.0-37.0); MEAN CORPUSCULAR VOLUME 88 fL (80-100); MONOCYTES # (AUTO) 0.7 K/uL (0.1-1.0); MONOCYTES % (AUTO) 10.3 % (2.0-9.0); NEUTROPHILS # (AUTO) 4.4 K/uL (1.8-7.7); NEUTROPHILS % (AUTO) 64.5 % (40.0-70.0); PLATELET COUNT (AUTO) 180 K/uL (150-450); RED BLOOD CELL COUNT(AUTO) 4.62 MIL/uL (4.50-5.90); RED CELL DISTRIBUTION WIDTH 15.1 % (11.5-14.5); WHITE BLOOD COUNT (AUTO) 6.8 K/uL (4.5-11.0)
[2024-01-01 06:55] LABS: ANION GAP 6 mmol/L (8-16); CALCIUM, TOTAL 9.4 mg/dL (8.8-10.5); CARBON DIOXIDE 30 mmol/L (22-29); CHLORIDE 106 mmol/L (98-107); CREATININE 0.92 mg/dL (0.60-1.30); GLOMERULAR FILTR. RATE CALC > 60 mL/min (>60); GLUCOSE,RANDOM 88 mg/dL (70-110); SODIUM SERUM 142 mmol/L (136-145); UREA NITROGEN, BLOOD 17 mg/dL (7-18)
[2024-01-01 08:34] VITALS: BP 135/82; PULSE 65; RESP 18; TEMP 97.7
[2024-01-01 15:37] VITALS: BP 127/74; PULSE 84; RESP 20; TEMP 98.9
[2024-01-01 19:39] VITALS: BP 133/78; PULSE 89; RESP 20; TEMP 99
[2024-01-02 05:16] VITALS: BP 133/71; PULSE 89; RESP 18; TEMP 97.8
[2024-01-02 07:21] VITALS: BP 137/79; PULSE 65; RESP 18; TEMP 98
[2024-01-02 15:28] VITALS: BP 108/68; PULSE 67; RESP 18; TEMP 98.6
[2024-01-02 19:45] VITALS: BP 129/70; PULSE 75; RESP 18; TEMP 98.2
[2024-01-03 04:35] VITALS: BP 124/79; PULSE 58; RESP 18; TEMP 97.7
[2024-01-03 08:04] VITALS: BP 123/68; PULSE 77; RESP 18; TEMP 97.7
[2024-01-03 15:25] VITALS: BP 108/66; PULSE 61; RESP 18; TEMP 97.7
[2024-01-03 19:30] VITALS: BP 125/70; PULSE 90; RESP 18; TEMP 98.5
[2024-01-04 04:30] VITALS: BP 134/86; PULSE 65; RESP 18; TEMP 97.3
[2024-01-04 07:18] VITALS: BP 130/82; PULSE 72; RESP 18; TEMP 97.8
[2024-01-04] MEDS ORDERED: ASPI-1450 PO (14:09)
[2024-01-04] MEDS ORDERED: ATOR20TA PO (14:10)
[2024-01-04] MEDS ORDERED: HEPA500018 SQ (14:10)
[2024-01-04] MEDS ORDERED: DOCU-119 PO (14:10)
[2024-01-04] MEDS ORDERED: MEMA10TA24 PO (14:11)
[2024-01-04] MEDS ORDERED: POLY17PO47 PO (14:12)
[2024-01-04] MEDS ORDERED: PANT-31 PO (14:12)
[2024-01-04] MEDS ORDERED: ACET-2247 PO (14:13)
[2024-01-04] MEDS ORDERED: MAGN-169 PO (14:13)
[2024-01-04] MEDS ORDERED: BISA-151 PO (14:13)
[2024-01-04 15:08] VITALS: BP 136/84; PULSE 84; RESP 20; TEMP 98.2
== END 2024-01-04 17:40 | DRG 91 ==
LOC: EMS 20:55 → 5N 12-29 02:21 → 6N 12-29 15:50 → 6S 12-30 17:31
PROVIDERS: ADMIT Internal Medicine; ATTEND Internal Medicine
DX: G92.8 Other toxic encephalopathy (principal); E43 Unspecified severe protein-calorie malnutrition; N30.90 Cystitis, unspecified without hematuria; E78.5 Hyperlipidemia, unspecified; F03.90 Unspecified dementia, unspecified severity, without behavioral disturbance, psychotic disturbance, mood disturbance, and anxiety; I10 Essential (primary) hypertension; K59.00 Constipation, unspecified; H54.8 Legal blindness, as defined in USA; D64.9 Anemia, unspecified; Z91.199 Patient's noncompliance with other medical treatment and regimen due to unspecified reason; Z68.28 Body mass index [BMI] 28.0-28.9, adult
CPT/HCPCS: 70496; 70498; 70551; 71045; 74019; 74176; 80048; 80053; 80307; 81001; 82948; 82962; 83605; 83880; 84145; 84484; 85025; 85610; 85730; 86850; 86900; 86901; 87040; 92526; 92610; 93005; 97116; 97161; 97167; 97530; 97535; 99291; J1644; J1956; J2060; J2270; J2543; J7030; J7040; J7050; Q9967; 36415-L1; 36415-TC; 70450; 70450-TC